=== PATIENT | female | born 1970 | race Caucasian/White ===

== ENCOUNTER 2022-10-10 18:17 | Emergency (ER) | payer OTHER, SELFPAY ==
[2022-10-10 18:33] VITALS: BP 125/72; PULSE 62; RESP 16; TEMP 36.6; O2SAT 99
--- NOTE | 2022-10-10 18:53 | ED.EAR ---
HPI - Ear Problem General Chief complaint: Ear Stated complaint: left ear pain Time Seen by Provider: 10/10/22 18:53 Source: patient, RN notes reviewed and old records reviewed Mode of arrival: ambulatory Limitations: no limitations History of Present Illness HPI Narrative: 52-year-old female presents to the [facility] with complaints of left ear pain. Has recently traveled via airplane. Started with a head cold about a week ago. Has been using nasal sprays, decongestants with no relief. Denies fevers, headaches, not show of, vomiting, chest pain or abdominal pain Related Data Home Medications Medication Instructions Recorded Confirmed conjugated estrogens 0.625 mg 0.625 mg DIRECTED 10/10/22 10/10/22 tablet (Premarin) levothyroxine 50 mcg tablet 50 mcg DIRECTED 10/10/22 10/10/22 (Synthroid) Allergies Allergy/AdvReac Type Severity Reaction Status Date / Time latex Allergy Intermediate Rash Verified 10/10/22 18:35 Review of Systems Review of Systems: All systems reviewed & are unremarkable except as noted in HPI and below Constitutional: Constitutional: Reports no additional constitutional complaints Eyes: Eyes: Reports no additional eye complaints ENT: Reports as per HPI, Reports otalgia (Left) and Reports nasal congestion Cardiovascular: Cardiovascular: Reports no additional cardiovascular complaints, Denies chest pain and Denies dyspnea Respiratory: Respiratory: Reports no additional respiratory complaints, Denies chest congestion, Denies cough and Denies dyspnea Gastrointestinal: Gastrointestinal: Reports no additional gastrointestinal complaints, Denies abdominal pain, Denies nausea and Denies vomiting Musculoskeletal: Musculoskeletal: Reports no additional musculoskeletal complaints Integumentary/Breasts: Skin/Breast: Reports system reviewed and no additional complaints, except as docu Neurologic: Reports system reviewed and no additional complaints, except as documented Psychiatric: Psychiatric: Reports no additional psychiatric complaints Allergic/Immunologic: Allergic/Immunologic: Reports no additional allergic/immunologic complaints PMFSH Comments At the time of my signature, I reviewed and agree with the nursing past medical, surgical, social, and family history. There is no relevant family history pertinent to the patient complaint. Exam Const: General: cooperative, healthy appearing, comfortable, no acute distress, well developed, alert and well nourished Nutritional Appearance: well nourished Orientation/consciousness: patient oriented x3 Limitations: no limitations HENMT: Head: normal to inspection Ears: hearing grossly normal bilaterally, external ears normal, EAC's normal, mastoids normal, no periauricular adenopathy and TM abnormal bulging bilateral and erythematous bilateral Face/Nose/Sinus: Normal external nose present, Normal nares present, Normal nasal mucous membranes and turbinates present, normal facial exam, face symmetric and sinus tenderness Face and sinus: normal facial exam Mouth: Yes Normal oral and palatal mucosa present, Yes lip normal and Yes moist mucous membranes Throat: posterior oropharynx normal, uvula midline and postnasal drainage Eyes: General: appearance normal, both eyes and all related structures Alignment and Position: alignment normal Periorbital: periorbital findings normal Pupils: Equal, round and reactive pupils present EOM: EOMs intact bilaterally Neck: Neck: normal visual inspection, full ROM, no lymphadenopathy and no meningeal signs Chest: Chest palpation & inspection: normal inspection of the chest Resp: Effort & Inspection: normal respiratory effort and able to speak in complete sentences Auscultation: clear to auscultation bilaterally, no crackles, no rales, no rhonchi and no wheezes Cardio: Rate: regular rate Rhythm: regular rhythm Back/Spine/Pelvis: Cervical Spine: cervical ROM normal Skin: General skin exam: normal color and
== END 2022-10-10 19:03 | disposition home or self-care (01) ==
PROVIDERS: Emergency Provider Nurse Practitioner
DX: H66.93 Otitis media, unspecified, bilateral (principal); E03.9 Hypothyroidism, unspecified
CPT/HCPCS: 99203; G0463

== ENCOUNTER → 2022-11-24 08:47 | Outpatient (CLI) | payer OTHER, SELFPAY ==
--- NOTE | ~2022-11-24 | CT_ITS ---
EXAMINATION: CT sinus wo con DATE: 11/24/2022 09:00 INDICATION: Left eustachian tube dysfunction TECHNIQUE: Computed tomography (CT) of the paranasal sinuses was performed without contrast. Iterativ e reconstruction technique was employed. Exam dose: 280.89 mGy-cm total exam DLP. COMPARISON: None FINDINGS: There is leftward deviation of the nasal septum. There is moderately prominent symmetric soft tissue thickening of the nasal turbinates. Tiara bullosa and intralamellar cell of right middle nasal turbinate. The ostiomeatal units are patent. The frontal sinuses are undeveloped. Normal aeration of the ethmoid air cells and maxillary and sphenoid sinuses is noted bilaterally. No mucoperiosteal thickening, air-fluid level or soft tissue opacity. The right mastoid air cells are normally developed and aerated. Right middle and inner ear apparatus appear normal. There is patchy opacification of a minority of the left mastoid air cells. The left middle and inner ear apparatus appear normal. IMPRESSION: Leftward nasal septum deviation Moderately prominent symmetric soft tissue thickening of the nasal turbinates Tiara bullosa and intralamellar cell of right middle nasal turbinate Normally aerated paranasal sinuses Mild patchy mastoid air cell effusions on the left Reviewed, dictated and finalized at [facility]. Reviewed, dictated and finalized at [facility].
== END ==
PROVIDERS: PCP Otolaryngology; Visit Provider Otolaryngology
DX: H69.82 Other specified disorders of Eustachian tube, left ear (principal); J90 Pleural effusion, not elsewhere classified; J34.2 Deviated nasal septum
CPT/HCPCS: 70486

== ENCOUNTER 2023-04-27 13:42 | Outpatient (CLI) | payer OTHER, SELFPAY ==
--- NOTE | ~2023-04-27 | CT_ITS ---
EXAMINATION: CT abdomen pelvis wo/w con DATE: 04/27/2023 14:20 INDICATION: Acute pyelonephritis TECHNIQUE: Computed tomography (CT) of the abdomen and pelvis was performed without and with 130 cc O mnipaque 350 intravenous contrast. The dose-length product was 1375.52 mGy-cm. Automated exposure con trol and iterative reconstruction technique were employed. COMPARISON: None. FINDINGS: Lung bases are unremarkable. No significant pleural or pericardial effusion. Small low-dens ity lesion dome of the liver, image 13,, likely benign. There are a few small subcentimeter hypovascu lar lesions in the left hepatic lobe, likely benign. Fatty infiltration of the liver. The spleen, cody creas, adrenal glands and kidneys are unremarkable. Gallbladder is present. The spleen, pancreas, adr enal glands are unremarkable. Nonobstructive bowel gas pattern. Bladder is unremarkable. There are bi lateral ureteral jets present. No free air or free fluid. No acute osseous abnormality. No focal lyti c or blastic lesions. IMPRESSION: 1. Unremarkable CT abdomen. Reviewed, dictated and finalized at [facility]. IMPRESSION: 1. Unremarkable CT abdomen.
== END 2023-04-27 13:43 ==
LOC: MICIMG 13:43
DX: N10 Acute pyelonephritis (principal)
CPT/HCPCS: 74178; Q9967

== ENCOUNTER 2023-10-12 09:42 | Outpatient (CLI) | payer OTHER, SELFPAY ==
--- NOTE | ~2023-10-12 | US_ITS ---
EXAMINATION: US thyroid DATE: 10/12/2023 10:05 INDICATION: Hypothyroidism, unspecified. Thyroid nodule. TECHNIQUE: Multiple ultrasound images of the thyroid were obtained. COMPARISON: None. FINDINGS: The right thyroid lobe measures 4.6 x 1.0 x 1.2 cm. The left thyroid lobe measures 4.0 x 0.8 x 1.2 c m. There is normal echotexture and echogenicity throughout the thyroid gland. No discrete nodules id entified. Normal vascular flow is present. IMPRESSION: 1. Normal thyroid. Reviewed, dictated and finalized at location [facility]. IMPRESSION: 1. Normal thyroid.
== END 2023-10-12 09:43 | disposition home or self-care (01) ==
PROVIDERS: PCP Internal Medicine; Visit Provider Internal Medicine
DX: E03.9 Hypothyroidism, unspecified (principal)
CPT/HCPCS: 76536